=== PATIENT | female | born 1995 | race Caucasian/White ===

== ENCOUNTER 2017-06-28 13:43 | Emergency (ER) | payer SELFPAY ==
[2017-06-28] MEDS ORDERED: CLEOCIN 900 MG/50 mL 900 MG/50 ML BAG IV ONE (15:02)
[2017-06-28] MEDS ORDERED: NACL 0.9% 1000 ML 1,000 ML IV ONE (15:02)
[2017-06-28] MEDS ORDERED: XYLOCAINE 1% MPF 5 mL INFILTRATI ONE (15:14)
[2017-06-28] MEDS ORDERED: ROCEPHIN IM ONE (15:14)
[2017-06-28] MEDS ORDERED: ZITHROMAX PO ONE (15:14)
[2017-06-28] MEDS ORDERED: XYLOCAINE 2% INFILTRATI ONE (15:18)
[2017-06-28] MEDS ORDERED: PHENERGAN ONE (15:20)
[2017-06-28] MEDS ORDERED: PHENERGAN PO ONE (15:22)
[2017-06-28 15:42] LABS: Basophils % (Auto) 0.3 % (0.0-1.8); Eosinophils % (Auto) 0.3 % (0.0-4.3); Hematocrit 37.3 % (30.3-42.9); Hemoglobin 12.5 gm/dl (10.1-14.3); Mean Corpuscular HGB Conc 34 % (30-34); Mean Corpuscular Hemoglobin 31 pg (28-32); Mean Corpuscular Volume 92 fl (79-97); Platelet Count 202 K/mm3 (140-440); Red Blood Count 4.05 M/mm3 (3.65-5.03); Red Cell Distribution Width 14.1 % (13.2-15.2); White Blood Count 12.8 K/mm3 (4.5-11.0)
[2017-06-28 15:49] LABS: Alanine Aminotransferase 9 units/L (7-56); Albumin/Globulin Ratio 1.4 %; Alkaline Phosphatase 60 units/L (35-129); Anion Gap 22 mmol/L; Blood Urea Nitrogen 5 mg/dL (7-17); Carbon Dioxide 20 mmol/L (22-30); Chloride 97.7 mmol/L (98-107); Glucose 69 mg/dL (65-100); Sodium 136 mmol/L (137-145); Total Protein 6.9 g/dL (6.3-8.2)
[2017-06-28 16:15] LABS: Bacteria,Urine 1+ /HPF (Negative); Bilirubin,Urine Negative (Negative); Ketones,Urine Negative (Negative); Mucus,Urine 3+ /HPF
[2017-06-28 16:16] LABS: Blood,Urine Negative (Negative); Leukocyte Esterase,Urine Negative (Negative); Nitrite,Urine Negative (Negative); Protein,Urine <15 mg/dL mg/dL (Negative); Urobilinogen,Urine < 2.0 mg/dL (<2.0)
--- NOTE | 2017-06-28 16:38 | Emergency Department Report ---
Entered by ENEDINA COLE, acting as scribe for RICHELLE MUNIZ NP. - General Chief complaint: Skin/Abscess/Foreign Body Stated complaint: BOIL Time Seen by Provider: 06/28/17 14:53 Source: patient Mode of arrival: Ambulatory Limitations: No Limitations - History of Present Illness Initial comments: 21 y/o female presents to the ED c/o abscess on buttocks x 4 days. Associated symptoms include pain and discharge but she denies vaginal pain, dysuria, vaginal bleeding, nausea, vomiting, fever and chills. Pain is described as constant and 10/10 on a severity scale. Patient states it hurts to sit. No alleviating or aggravating factors. Patient has an appointment with OBGYN on 12/18. IVONE. LMP: 04/05/17. complaint: abscess/boil Onset/Timin -: days(s) Location: buttocks Severity: severe Severity scale (0 -10): 10 Quality: constant Consistency: constant Improves with: none Worsens with: none Context: none Associated symptoms: other (pain, discharge, denies: fever, chills, nausea, vomiting, dysuria, vaginal pain, vaginal bleeding) Treatments Prior to Arrival: none - Related Data Previous Rx's Medication Instructions Recorded Last Taken Type Clindamycin [Clindamycin CAP] 300 mg PO Q6H #40 capsule 06/28/17 Unknown Rx metroNIDAZOLE 0.75% [Metrogel 1 applicatio TP BID #1 tube 06/28/17 Unknown Rx 0.75% TOPICAL] Allergies Allergy/AdvReac Type Severity Reaction Status Date / Time No Known Allergies Allergy Verified 06/28/17 14:32 Abscess Boil HPI - HPI Chief Complaint: Skin/Abscess/Foreign Body Stated Complaint: BOIL Time Seen by Provider: 06/28/17 14:50 Home Medications: Previous Rx's Medication Instructions Recorded Last Taken Type Clindamycin [Clindamycin CAP] 300 mg PO Q6H #40 capsule 06/28/17 Unknown Rx metroNIDAZOLE 0.75% [Metrogel 1 applicatio TP BID #1 tube 06/28/17 Unknown Rx 0.75% TOPICAL] Allergies/Adverse Reactions: Allergies Allergy/AdvReac Type Severity Reaction Status Date / Time No Known Allergies Allergy Verified 06/28/17 14:32 ED Review of Systems Comment: All other systems reviewed and negative Constitutional: denies: chills, fever Eyes: denies: eye pain, eye discharge, vision change ENT: denies: ear pain, throat pain Respiratory: denies: cough, shortness of breath, wheezing Cardiovascular: denies: chest pain, palpitations Endocrine: no symptoms reported Gastrointestinal: denies: nausea, vomiting Genitourinary: discharge. denies: dysuria, other (vaginal pain, vaginal bleeding) Musculoskeletal: denies: back pain, joint swelling, arthralgia Skin: other (pain, abscess on buttocks ) Neurological: denies: headache, weakness, paresthesias Psychiatric: denies: anxiety, depression Hematological/Lymphatic: denies: easy bleeding, easy bruising ED Past Medical Hx - Past Medical History Previous Medical History?: No - Surgical History Past Surgical History?: No - Social History Smoking Status: Never Smoker Substance Use Type: None - Medications Home Medications: Home Medications Medication Instructions Recorded Confirmed Last Taken Type Clindamycin [Clindamycin CAP] 300 mg PO Q6H #40 capsule 06/28/17 Unknown Rx metroNIDAZOLE 0.75% [Metrogel 1 applicatio TP BID #1 tube 06/28/17 Unknown Rx 0.75% TOPICAL] ED Physical Exam - General Limitations: No Limitations General appearance: alert, in no apparent distress - Head Head exam: Present: atraumatic, normocephalic, normal inspection - Eye Eye exam: Present: normal appearance, PERRL, EOMI Pupils: Present: normal accommodation - ENT ENT exam: Present: normal exam, normal orophraynx, mucous membranes moist, TM's normal bilaterally, normal external ear exam - Neck Neck exam: Present: normal inspection, full ROM. Absent: tenderness, meningismus, lymphadenopathy, thyromegaly - Respiratory Respiratory exam: Present: normal lung sounds bilaterally. Absent: respiratory distress, wheezes, rales, rhonchi, chest wall tenderness, accessory muscle use, decreased breath sounds - Cardiovascular Cardiovascular Exam: Present: regular rate, normal rhythm, normal heart sounds. Absent: bradycardia, tachycardia, irregular rhythm, systolic murmur, diastolic murmur, rubs, gallop - GI/Abdominal GI/Abdominal exam: Present: soft, normal bowel sounds. Absent: distended, tenderness, guarding, rebound, rigid, diminished bowel sounds - External exam: Present: normal external exam. Absent: erythema, swelling, lesions, lacerations, ecchymosis, bleeding Speculum exam: Present: erythema. Absent: vaginal discharge, cervical discharge , vaginal bleeding, foreign body, tissue, laceration Bi-manual exam: Present: normal bi-manual exam, cervical motion tendernes. Absent: adnexal tenderness, adnexal mass - Extremities Exam Extremities exam: Present: normal inspection, full ROM, normal capillary refill. Absent: tenderness, pedal edema, joint swelling, calf tenderness - Back Exam Back exam: Present: normal inspection, full ROM. Absent: tenderness, CVA tenderness (R), CVA tenderness (L), muscle spasm, paraspinal tenderness, vertebral tenderness, rash noted - Neurological Exam Neurological exam: Present: alert, oriented X3 - Psychiatric Psychiatric exam: Present: normal affect, normal mood - Skin Skin exam: Present: warm, dry, normal color, other (pilonidal abscess on buttocks ) - Other Other exam information: [employer] present during external exam Enedina Cole ED Course Vital Signs 06/28/17 14:32 Temperature 98.8 F Pulse Rate 108 H Respiratory 16 Rate Blood Pressure 127/82 O2 Sat by Pulse 100 Oximetry - I & D Buttocks Type of Procedure: Complex Site: gluteal fold Blade Size: 11 I & D Procedure: betadine prep, sterile drapes applied, sterile dressing applied , gauze wick placed Progress: left glutteal fold abscess, 2x3 cm site cleaned with betadine solution, anesthesia with 2% lidocaine plan 3cc, incision with 11 blade 1 cm, moderate purlent discharge , blunt dissection via forceps , wound irrigated with 60 cc NS , packed with 1/4 iodoform , bleeding controlled pt given wound care instructions, will follow up with hide cleaner in 3 days, pt tolerated same with minimal distress, ED Medical Decision Making - Lab Data Result diagrams: 06/28/17 15:13 06/28/17 15:13 Laboratory Tests 06/28/17 06/28/17 06/28/17 15:13 15:13 15:33 WBC 12.8 H RBC 4.05 Hgb 12.5 Hct 37.3 MCV 92 MCH 31 MCHC 34 RDW 14.1 Plt Count 202 Lymph % (Auto) 12.4 L [place] % (Auto) 10.0 H Eos % (Auto) 0.3 Baso % (Auto) 0.3 Lymph # 1.6 [place] # 1.3 H Eos # 0.0 Baso # 0.0 Seg Neutrophils % 77.0 H Seg Neutrophils # 9.8 H Sodium 136 L Potassium 4.0 Chloride 97.7 L Carbon Dioxide 20 L Anion Gap 22 BUN 5 L Creatinine 0.5 L Estimated GFR > 60 BUN/Creatinine Ratio 10.00 Glucose 69 Calcium 9.0 Total Bilirubin 0.40 AST 14 ALT 9 Alkaline Phosphatase 60 Total Protein 6.9 Albumin 4.0 Albumin/Globulin Ratio 1.4 Urine Color Yellow Urine Turbidity Clear Urine pH 5.0 Ur Specific [place] 1.015 Urine Protein <15 mg/dl Urine Glucose (UA) Negative Urine Ketones Negative Urine Blood Negative Urine Nitrite Negative Ur Reducing Substances Not Reportable Urine Bilirubin Negative Urine Ictotest Not Reportable Urine Urobilinogen < 2.0 Ur Leukocyte Esterase Negative Urine WBC (Auto) 104.0 H Urine RBC (Auto) 23.0 U Epithel Cells (Auto) 77.0 H Urine Bacteria (Auto) 1+ Urine Mucus 3+ Urine HCG, Qual Positive A - Medical Decision Making pt is a 21 y/o aaf with nmh lmp 04/15/2017 pos preg has obgyn follow up in 3 days with [facility], pt presents for abscess to left buttocks , symptoms include pain swelling purulent discharge , malodorous, pt advises negative gc/ ch at [employer] , exam: abcess draining purulent discharge to left glutteal fold , raised 3x4 cm erythema painful to touch, pt for I&D of same, see procedure note , vaginal exam: no rash no lesion no open sores no discharge , no pain, cervix: os closed plan: rocephin , azithromycin, flagyl gel, a clindamycin po , pt given wound care instructions pt verbalized understanding and agreement with wa , pt will follow up with hide cleaner as scheduled , labs noted for pos hcg, ED Disposition Clinical Impression: Gluteal abscess, PID (acute pelvic inflammatory disease) Disposition: TO HOME OR SELFCARE Is pt being admited?: No Does the pt Need Aspirin: No Condition: Good Instructions: Abscess (ED), Pelvic Inflammatory Disease (ED) Additional Instructions: Advise partner to seek treatment babatunde, wound care as instructed, follow up with [facility] as scheduled in 3 days for wound check and normal checkup Prescriptions: Clindamycin [Clindamycin CAP] 300 mg PO Q6H #40 capsule metroNIDAZOLE 0.75% [Metrogel 0.75% TOPICAL] 1 applicatio TP BID #1 tube Referrals: PRIMARY CARE,MD [Primary Care Provider] - 3-5 Days Forms: Work/School Release Form(ED) Time of Disposition: 16:37 This documentation as recorded by the DOUGLAS cao ELIZABETH,accurately reflects the service I personally performed and the decisions made by , RICHELLE MUNIZ NP.
[2017-06-28 16:48] VITALS: BP 99/62
== END 2017-06-28 16:49 | disposition home or self-care (01) ==
LOC: ED 13:43
DX: L02.31 Cutaneous abscess of buttock (principal); N73.9 Female pelvic inflammatory disease, unspecified
CPT/HCPCS: 10060; 36415; 80053; 81001; 81025; 85025; 96360; 96372; 99283; J0696; J7030; Q0169

== ENCOUNTER 2017-07-11 22:11 | Emergency (ER) | payer SELFPAY ==
[2017-07-11 22:50] LABS: Basophils % (Auto) 0.5 % (0.0-1.8); Eosinophils % (Auto) 1.4 % (0.0-4.3); Hematocrit 35.1 % (30.3-42.9); Hemoglobin 11.8 gm/dl (10.1-14.3); Mean Corpuscular HGB Conc 34 % (30-34); Mean Corpuscular Hemoglobin 31 pg (28-32); Mean Corpuscular Volume 92 fl (79-97); Platelet Count 233 K/mm3 (140-440); Red Blood Count 3.83 M/mm3 (3.65-5.03); Red Cell Distribution Width 14.2 % (13.2-15.2); White Blood Count 9.2 K/mm3 (4.5-11.0)
[2017-07-11 23:13] LABS: Alanine Aminotransferase 12 units/L (7-56); Albumin 3.7 g/dL (3.9-5); Albumin/Globulin Ratio 1.2 %; Alkaline Phosphatase 48 units/L (35-129); Anion Gap 19 mmol/L; Bilirubin,Total < 0.20 mg/dL (0.1-1.2); Blood Urea Nitrogen 6 mg/dL (7-17); Calcium 8.8 mg/dL (8.4-10.2); Carbon Dioxide 21 mmol/L (22-30); Chloride 96.6 mmol/L (98-107); Glucose 103 mg/dL (65-100); Lipase 23 units/L (13-60); Potassium 3.6 mmol/L (3.6-5.0); Sodium 133 mmol/L (137-145); Total Protein 6.9 g/dL (6.3-8.2)
[2017-07-11 23:49] LABS: Bacteria,Urine 1+ /HPF (Negative); Bilirubin,Urine NEG (Negative); Blood,Urine NEG (Negative); Ketones,Urine NEG (Negative); Leukocyte Esterase,Urine MOD (Negative); Mucus,Urine 1+ /HPF; Nitrite,Urine NEG (Negative); Urobilinogen,Urine < 2.0 mg/dL (<2.0)
[2017-07-12] MEDS ORDERED: TYLENOL ONE (00:39)
[2017-07-12] MEDS ORDERED: TYLENOL PO ONE (00:40)
--- NOTE | 2017-07-12 03:01 | Emergency Department Report ---
ED Abdominal Pain HPI - General Chief Complaint: Abdominal Pain Stated Complaint: 12 WEEKS/ABDOMINAL PAIN Time Seen by Provider: 07/12/17 02:55 Source: patient Mode of arrival: Ambulatory Limitations: No Limitations - History of Present Illness Initial Comments: 21-year-old female who presents emergency Department with complaint of abdominal pain. Patient states that she believes she is 12 weeks but has not had any formal testing to confirm. She has had a positive test. She complains of cramping diffusely across her lower abdomen. No vaginal bleeding or vaginal discharge no fevers nausea vomiting. This is her first child. -: Gradual, week(s) (1) Location: LLQ, RLQ Radiation: none Migration to: no migration Severity: mild Severity scale (0 -10): 10 Associated Symptoms: denies other symptoms. denies: nausea, vomiting, diarrhea - Related Data Previous Rx's Medication Instructions Recorded Last Taken Type Clindamycin [Clindamycin CAP] 300 mg PO Q6H #40 capsule 06/28/17 Unknown Rx metroNIDAZOLE 0.75% [Metrogel 1 applicatio TP BID #1 tube 06/28/17 Unknown Rx 0.75% TOPICAL] Allergies Allergy/AdvReac Type Severity Reaction Status Date / Time No Known Allergies Allergy Verified 06/28/17 14:32 ED Review of Systems ROS: Stated complaint: 12 WEEKS/ABDOMINAL PAIN Other details as noted in HPI Comment: All other systems reviewed and negative Constitutional: denies: chills, fever Eyes: denies: eye pain, eye discharge, vision change ENT: denies: ear pain, throat pain Respiratory: denies: cough, shortness of breath, SOB with exertion, SOB at rest , wheezing Cardiovascular: denies: chest pain, palpitations Gastrointestinal: abdominal pain. denies: nausea, diarrhea Genitourinary: denies: urgency, dysuria, frequency, hematuria, discharge Musculoskeletal: denies: back pain, joint swelling, arthralgia Neurological: denies: headache, weakness Psychiatric: denies: anxiety, depression Hematological/Lymphatic: denies: easy bleeding, easy bruising ED Past Medical Hx - Past Medical History Previous Medical History?: No - Surgical History Past Surgical History?: No - Family History Family history: no significant - Social History Smoking Status: Never Smoker Substance Use Type: None - Medications Home Medications: Home Medications Medication Instructions Recorded Confirmed Last Taken Type Clindamycin [Clindamycin CAP] 300 mg PO Q6H #40 capsule 06/28/17 Unknown Rx metroNIDAZOLE 0.75% [Metrogel 1 applicatio TP BID #1 tube 06/28/17 Unknown Rx 0.75% TOPICAL] ED Physical Exam - General Limitations: No Limitations General appearance: alert, in no apparent distress - Head Head exam: Present: atraumatic, normocephalic - Eye Eye exam: Present: normal appearance - ENT ENT exam: Present: mucous membranes moist - Neck Neck exam: Present: normal inspection - Respiratory Respiratory exam: Present: normal lung sounds bilaterally. Absent: respiratory distress - Cardiovascular Cardiovascular Exam: Present: regular rate, normal rhythm. Absent: systolic murmur, diastolic murmur, rubs, gallop - GI/Abdominal GI/Abdominal exam: Present: soft, guarding (mild), normal bowel sounds. Absent : distended, tenderness, rebound - Extremities Exam Extremities exam: Present: normal inspection - Back Exam Back exam: Present: normal inspection - Neurological Exam Neurological exam: Present: alert, oriented X3 - Psychiatric Psychiatric exam: Present: normal affect, normal mood - Skin Skin exam: Present: warm, dry, intact, normal color. Absent: rash ED Course Vital Signs 07/11/17 07/12/17 07/12/17 22:14 02:16 03:33 Temperature 98.5 F 98.0 F Pulse Rate 78 77 Respiratory 18 16 16 Rate Blood Pressure 113/74 Blood Pressure 106/58 [Right] O2 Sat by Pulse 100 99 Oximetry ED Medical Decision Making - Lab Data Result diagrams: 07/11/17 22:38 07/11/17 22:38 Laboratory Results - last 24 hr 07/11/17 07/11/17 07/11/17 22:38 22:38 22:38 WBC 9.2 RBC 3.83 Hgb 11.8 Hct 35.1 MCV 92 MCH 31 MCHC 34 RDW 14.2 Plt Count 233 Lymph % (Auto) 28.8 [place] % (Auto) 8.2 H Eos % (Auto) 1.4 Baso % (Auto) 0.5 Lymph # 2.6 [place] # 0.8 Eos # 0.1 Baso # 0.0 Seg Neutrophils % 61.1 Seg Neutrophils # 5.6 Sodium 133 L Potassium 3.6 Chloride 96.6 L Carbon Dioxide 21 L Anion Gap 19 BUN 6 L Creatinine 0.4 L Estimated GFR > 60 BUN/Creatinine Ratio 15.00 Glucose 103 H Calcium 8.8 Total Bilirubin < 0.20 AST 20 ALT 12 Alkaline Phosphatase 48 Total Protein 6.9 Albumin 3.7 L Albumin/Globulin Ratio 1.2 Lipase 23 HCG, Qual Positive Urine Color Urine Turbidity Urine pH Ur Specific [place] Urine Protein Urine Glucose (UA) Urine Ketones Urine Blood Urine Nitrite Urine Bilirubin Urine Urobilinogen Ur Leukocyte Esterase Urine WBC (Auto) Urine RBC (Auto) U Epithel Cells (Auto) Urine Bacteria (Auto) Urine Mucus 07/11/17 Unknown WBC RBC Hgb Hct MCV MCH MCHC RDW Plt Count Lymph % (Auto) [place] % (Auto) Eos % (Auto) Baso % (Auto) Lymph # [place] # Eos # Baso # Seg Neutrophils % Seg Neutrophils # Sodium Potassium Chloride Carbon Dioxide Anion Gap BUN Creatinine Estimated GFR BUN/Creatinine Ratio Glucose Calcium Total Bilirubin AST ALT Alkaline Phosphatase Total Protein Albumin Albumin/Globulin Ratio Lipase HCG, Qual Urine Color Yellow Urine Turbidity Slightly-cloudy Urine pH 6.0 Ur Specific [place] 1.021 Urine Protein 100 mg/dl Urine Glucose (UA) Neg Urine Ketones Neg Urine Blood Neg Urine Nitrite Neg Urine Bilirubin Neg Urine Urobilinogen < 2.0 Ur Leukocyte Esterase Mod Urine WBC (Auto) 47.0 H Urine RBC (Auto) 8.0 U Epithel Cells (Auto) 33.0 H Urine Bacteria (Auto) 1+ Urine Mucus 1+ - Medical Decision Making Patient is 2-year-old female who presents to emergency department with crampy abdominal pain. Patient believes she is 12 weeks related. Her exam is nonfocal. She denies any vaginal discharge or vaginal bleeding. Plan to get a transvaginal ultrasound to confirm IUP. Patient has 47 white blood cells on her UA however I do not believe that this is UTI as she has 33 epithelial cells Ultrasound shows a fetus for 14 weeks 5 days. Plan to discharge home. Portions of this chart were dictated with dictation software. There may be dictation errors contained within this note. Critical care attestation.: If time is entered above; I have spent that time in minutes in the direct care of this critically ill patient, excluding procedure time. ED Disposition Clinical Impression: Abdominal pain affecting Disposition: DC-01 TO HOME OR SELFCARE Is pt being admited?: No Condition: Stable Instructions: Abdominal Pain (ED) Additional Instructions: Please follow-up with a telemetry technician. Referrals: PRIMARY CARE, [Primary Care Provider] - 3-5 Days MATILDA BULLARD MD [Staff Physician] - 3-5 Days
[2017-07-12 03:34] VITALS: BP 106/58
--- NOTE | 2017-07-12 05:40 | Ultrasound Report ---
FINAL REPORT PROCEDURE: US OB TRANSVAGINAL TECHNIQUE: Real-time transvaginal sonography of the uterus, placenta, amniotic fluid, adnexa, and fetus was performed with image documentation. Measurements were obtained to determine age/size. M-mode Doppler was used to document heartbeat. CPT 64423 HISTORY: abdominal pain, cramping COMPARISON: No prior studies are available for comparison. FINDINGS: There is a single live intrauterine gestation in breech presentation. Placenta is posterior and grade 0. There is no previa. Heart rate is 152 beats per minute. Amniotic fluid volume is subjectively normal. Cervix measures 3.5 centimeters in length and is closed. Estimated gestational age based on the measurements is 14 weeks and 5 days. Estimated date of delivery is January 05, 2018. Anatomic survey at 18-20 weeks is recommended. IMPRESSION: 1. Single living intrauterine gestation at approximately 14 weeks and 5 days 2. EDC by US January 05, 2018.
--- NOTE | 2017-07-12 05:41 | Ultrasound Report ---
FINAL REPORT PROCEDURE: US OB TRANSABDOMINAL TECHNIQUE: Real-time transabdominal sonography of the uterus, placenta, amniotic fluid, adnexa, and fetus was performed with image documentation. Measurements were obtained to determine age/size. M-mode Doppler was used to document heartbeat. HISTORY: abdominal pain, cramping COMPARISON: No prior studies are available for comparison. FINDINGS: There is a single live intrauterine gestation in breech presentation. Placenta is posterior and grade 0. There is no previa. Heart rate is 152 beats per minute. Amniotic fluid volume is subjectively normal. Cervix measures 3.5 centimeters in length and is closed. Estimated gestational age based on the measurements is 14 weeks and 5 days. Estimated date of delivery is January 05, 2018. Anatomic survey at 18-20 weeks is recommended. IMPRESSION: 1. Single living intrauterine gestation at approximately 14 weeks and 5 days 2. EDC by US January 05, 2018.
== END 2017-07-12 06:00 | disposition home or self-care (01) ==
LOC: ED 22:11
DX: O26.892 Other specified pregnancy related conditions, second trimester (principal); R10.30 Lower abdominal pain, unspecified; Z3A.14 14 weeks gestation of pregnancy
CPT/HCPCS: 36415; 76805; 76817; 80053; 81001; 83690; 84702; 84703; 85025; 99284